=== PATIENT | female | born 1980 | race African-American/Black ===

== ENCOUNTER 2018-10-31 12:49 | Inpatient (IN) ==
[2018-10-31 15:04] LABS: Apearance,Urine CLOUDY (Clear); Blood, Urine Negative (Negative); Glucose,Urine (UA) Negative (Negative); Hyaline Casts,Urine 77 /LPF (0-3); Ketones,Urine 20 mg/dL (Negative); Mucus,Urine Many /LPF (Occasional); Nitrite,Urine Negative (Negative); Protein,Urine 100 MG/DL; RBC,Urine 10 /HPF (0-4); Squamous Epithelial Cell,Urine Occasional /HPF (0-10); Urine Color Amber (Yellow); Urine Specific Gravity 1.025 (1.001-1.035); WBC,Urine 70 /HPF (0-6)
[2018-10-31 15:06] LABS: Bilirubin,Urine Small mg/dL (Negative)
[2018-10-31 15:19] LABS: Basophils # 0.1 10*3/uL (0.0-0.2); Basophils % 0.4 % (0.0-0.8); Eosinophils % 0.1 % (0.00-10.9); Hemoglobin 7.3 GM/DL (12.0-16.0); Immature Granulocytes % 4.8 %; Lymphocytes # 1.2 10*3/uL (1.4-4.0); Lymphocytes % 4.7 % (21.3-54.2); Mean Corpuscular HGB Conc 28.1 GM/DL (32-36); Mean Corpuscular Hemoglobin 18 PG (27-34); Mean Corpuscular Volume 62.4 FL (87-102); Mean Platelet Volume 9.7 FL (9.6-12.0); Monocytes # 2.1 10*3/uL (0.11-0.8); Monocytes % 8.5 % (1.7-12.7); NRBC # 0.17 10*3/uL; Neutrophils # 20.3 10*3/uL (1.4-7.4); Neutrophils % 81.5 % (38.7-73.9); Platelet Count 334 T/CUMM (130-400); Red Blood Count 4.17 MC/CUMM (3.8-5.5); Red Cell Distribution Width 20.5 % (9.3-17.3)
[2018-10-31 15:49] LABS: Albumin 2.8 G/DL (3.4-5.0); Bilirubin,Total 0.6 MG/DL (0.2-1.0); Calcium 8.8 MG/DL (8.5-10.1); Potassium 4.6 MMOL/L (3.5-5.1)
[2018-10-31] MEDS ORDERED: cefTRIAXone 1,000 MG in SODIUM CHLORIDE 0.9% 100 ML IV STA (17:03)
[2018-10-31] MEDS ORDERED: ENOXAPARIN 100 MG/ML SYRINGE SUBCUT STA (17:03)
[2018-10-31] MEDS ORDERED: cefTRIAXone 1,000 MG VIAL ONE ×2 (17:07→17:09)
[2018-10-31 17:17] LABS: Lactic Acid 2.3 MMOL/L (0.4-2.0)
[2018-10-31 17:31] LABS: INR 1.1; PT Patient Result 11.4 SECS; Partial Thromboplastin Time 24.6 SECS (0-40)
[2018-10-31 18:53] LABS: Band Neutrophils 3 % (0-10); Lymphocytes 6 % (20-55); Segmented Neutrophils 84 % (50-85)
[2018-10-31 18:55] LABS: Anisocytosis 2+
[2018-10-31 18:56] LABS: Hypochromasia 2+; Poikilocytosis Few; Polychromasia Few
[2018-10-31 18:57] LABS: Giant Platelets Few; Ovalocytes Few
[2018-10-31 18:58] LABS: Platelet Estimate Increased
[2018-10-31 18:59] LABS: Total Cells Counted 100
[2018-10-31] MEDS ORDERED: traZODone 50 MG TABLET PO PRN (19:48)
[2018-10-31] MEDS ORDERED: MORPHINE 4 MG/1 ML VIAL IV PRN (19:48)
[2018-10-31] MEDS ORDERED: ONDANSETRON 4 MG/2 ML VIAL IV PRN (19:48)
[2018-10-31] MEDS ORDERED: SODIUM CHLORIDE 0.9% 1,000 ML IV PRN (19:48)
[2018-10-31] MEDS ORDERED: METOPROLOL TARTRATE 5 MG/5 ML VIAL IV ONE (21:30)
[2018-10-31] MEDS: traMADol 50 MG TABLET PO PRN (21:35)
[2018-10-31 21:51] LABS: Lactic Acid 1.4 MMOL/L (0.4-2.0)
[2018-10-31 21:53] LABS: % Iron Saturation 3.9 % (18-50); Ferritin 44.2 ng/ml (8-252)
[2018-10-31 21:59] LABS: Thyroid Stimulating Hormone 0.644 uIU/ml (0.358-3.74); Troponin I < 0.015 NG/ML (0.00-0.045)
[2018-10-31 22:11] LABS: B-Type Natriuretic Peptide 6 PG/ML (2-100)
[2018-10-31 22:40] LABS: Cancer Antigen 19-9 2.7 U/ML (0-37); Carcinoembryonic Antigen < 0.5 NG/ML (0.0-5.0)
[2018-11-01] MEDS: TEMAZEPAM 15 MG CAPSULE PO SCH ×2 (00:07→21:10)
[2018-11-01] MEDS: APIXABAN 5 MG TABLET PO SCH ×3 (00:07→21:10)
[2018-11-01 06:19] LABS: Hematocrit 31.4 VOL% (35.7-47.0)
[2018-11-01 06:27] LABS: Hemoglobin 9.2 GM/DL (12.0-16.0)
[2018-11-01 06:35] LABS: INR 1.1; PT Patient Result 11.5 SECS
[2018-11-01 06:47] LABS: Troponin I < 0.015 NG/ML (0.00-0.045)
[2018-11-01] MEDS: PANTOPRAZOLE 40 MG TABLET PO SCH (08:57)
[2018-11-01] MEDS: DESVENLAFAXINE 50 MG TABLET PO SCH (08:57)
[2018-11-01] MEDS: MELOXICAM 7.5 MG TABLET PO SCH (08:57)
[2018-11-01] MEDS: SERTRALINE 100 MG TABLET PO SCH (08:58)
[2018-11-01] MEDS ORDERED: ETODOLAC 500 MG PO SCH (09:00)
[2018-11-01] MEDS ORDERED: PANTOPRAZOLE 40 MG TABLET PO SCH (09:00)
[2018-11-01] MEDS: DICLOFENAC 1% GEL 100 GM TUBE TOP SCH ×3 (12:18→21:11)
[2018-11-01] MEDS ORDERED: cefTRIAXone 1,000 MG in SYRINGE 1 EACH IV SCH (18:00)
[2018-11-01] MEDS: SODIUM CHLORIDE 0.9% 1,000 ML IV SCH ×2 (18:03)
[2018-11-01] MEDS: traMADol 50 MG TABLET PO PRN (21:11)
[2018-11-02] MEDS: SODIUM CHLORIDE 0.9% 1,000 ML IV SCH (00:13)
[2018-11-02] MEDS: traMADol 50 MG TABLET PO PRN (04:40)
[2018-11-02 05:04] LABS: Basophils # 0.1 10*3/uL (0.0-0.2); Basophils % 0.3 % (0.0-0.8); Eosinophils # 0.1 10*3/uL (0.0-0.87); Eosinophils % 0.6 % (0.00-10.9); Hematocrit 28.7 VOL% (35.7-47.0); Hemoglobin 8.3 GM/DL (12.0-16.0); Immature Granulocytes % 4.5 %; Immature Granulocytes Absolute 0.87 #; Lymphocytes # 1.5 10*3/uL (1.4-4.0); Lymphocytes % 7.6 % (21.3-54.2); Mean Corpuscular HGB Conc 28.9 GM/DL (32-36); Mean Corpuscular Hemoglobin 19 PG (27-34); Mean Corpuscular Volume 65.4 FL (87-102); Mean Platelet Volume 10.1 FL (9.6-12.0); Monocytes # 1.8 10*3/uL (0.11-0.8); Monocytes % 9.3 % (1.7-12.7); NRBC # 0.03 10*3/uL; Neutrophils # 14.9 10*3/uL (1.4-7.4); Neutrophils % 77.7 % (38.7-73.9); Platelet Count 399 T/CUMM (130-400); Red Blood Count 4.39 MC/CUMM (3.8-5.5); Red Cell Distribution Width 22.9 % (9.3-17.3); White Blood Count 19.2 T/CUMM (4-12)
[2018-11-02 05:29] LABS: Calcium 8.7 MG/DL (8.5-10.1); Potassium 3.8 MMOL/L (3.5-5.1)
[2018-11-02 05:43] LABS: Band Neutrophils 1 % (0-10); Lymphocytes 7 % (20-55); Total Cells Counted 100
[2018-11-02 05:44] LABS: Platelet Estimate Normal; Segmented Neutrophils 84 % (50-85)
[2018-11-02 11:11] LABS: Transferrin 238 mg/dL (200 - 360)
[2018-11-02] MEDS: MELOXICAM 7.5 MG TABLET PO SCH (11:38)
[2018-11-02] MEDS: PANTOPRAZOLE 40 MG TABLET PO SCH (11:38)
[2018-11-02] MEDS: SERTRALINE 100 MG TABLET PO SCH (11:38)
[2018-11-02] MEDS: DESVENLAFAXINE 50 MG TABLET PO SCH (11:38)
[2018-11-02] MEDS: APIXABAN 5 MG TABLET PO SCH (11:39)
[2018-11-02] MEDS: DICLOFENAC 1% GEL 100 GM TUBE TOP SCH ×2 (11:39→14:16)
[2018-11-02 12:01] LABS: Protein C Activity Plasma 91 % (70 - 150)
[2018-11-02 12:03] LABS: Cancer Antigen 125 19 U/mL (<46)
[2018-11-02 12:17] VITALS: BP 126/82
[2018-11-03 13:05] LABS: INR 1.3
[2018-11-08 09:37] LABS: PT Mix 1:1 (Mayo Reflex) 12.6 sec; Thrombin Time (Bovine), P 17 sec (15 - 23)
== END 2018-11-02 14:24 | disposition home or self-care (01) | DRG 176 ==
LOC: N.ED 12:49 → N.EDINP 18:39 → N.5E 19:47 → N.TELES 20:17
PROVIDERS: ADMIT Internal Medicine Cardiovascular Disease; ATTEND Internal Medicine Cardiovascular Disease